=== PATIENT | male | born 1950 | race Hispanic/Latino ===

== ENCOUNTER 2023-04-14 08:02 | Outpatient (RCR) | payer OTHER ==
[~2023-04-14 08:02] MED LIST: ATORVASTATIN CA40 MG PO; CLOPIDOGREL75 MG PO; COLLAGENASE OINTMENT 30 GM TUBE ONE; FAMOTIDINE20 MG PO; FLOMAX0.4 MG PO; FUROSEMIDE20 MG PO; GABAPENTIN100 MG PO; GLIPIZIDE10 MG PO; JARDIANCE25 MG PO; LISINOPRIL2.5 MG PO; MELOXICAM7.5 MG PO; MIDODRINE HCL2.5 MG PO; MINERAL OIL/PETROLAT/GLYCERI 6OZ BTL ONE; NOVOLIN R100 UNIT/1 SC; OMEPRAZOLE40 MG PO; PANTOPRAZOLE SO40 MG PO; PENTOXIFYLLINE400 MG PO
[2023-04-14] MEDS ORDERED: COLLAGENASE OINTMENT 30 GM TUBE ONE ×2 (12:19→12:22)
[2023-04-14] MEDS ORDERED: MINERAL OIL/PETROLAT/GLYCERI 6OZ BTL ONE ×2 (12:19→12:22)
== END 2023-04-14 23:04 | disposition home or self-care (01) ==
LOC: WCC 08:02
PROVIDERS: ATTEND Plastic Surgery
DX: E11.621 Type 2 diabetes mellitus with foot ulcer (principal); L97.426 Non-pressure chronic ulcer of left heel and midfoot with bone involvement without evidence of necrosis
CPT/HCPCS: 97602 ×2; 99212 ×2; 99213 ×4; 99214; G0277 ×11

== ENCOUNTER → 2023-05-14 | Outpatient (RCR) | payer OTHER | LOC: WCC 04-15 08:38 | PROVIDERS: ATTEND Plastic Surgery | DX: E11.621 Type 2 diabetes mellitus with foot ulcer (principal); L97.426 Non-pressure chronic ulcer of left heel and midfoot with bone involvement without evidence of necrosis | CPT/HCPCS: 36415 ×9; 82948 ×9; 97602 ×3; 97605 ×2; 99212 ×3; 99213; 99214 ×4; G0277 ×9 ==